=== PATIENT | male | born 1995 | race Two or more races ===

== ENCOUNTER 2016-07-05 16:41 | Emergency (ER) | payer OTHER ==
[2016-07-05 16:47] VITALS: BP 120/63; PULSE 72; RESP 16; TEMP 97.5; O2SAT 97
--- NOTE | 2016-07-05 17:05 | EDPHY ---
General Narrative: CHIEF COMPLAINT: Left finger pain HISTORY OF PRESENT ILLNESS: 3 weeks ago injured his left middle finger playing football. Says he caught the ball awkwardly, jamming his left middle finger. Since then he has had some pain at DIP joint of the left middle finger. It is mild at rest. [id number] with flexion or movement of the finger. He has no numbness or tingling. No weakness. No lacerations or abrasions. No fever chills. No difficulty using the finger. He has not yet been evaluated by anyone. No bleeding disorders. No other associated complaints or modifying factors. PRIOR ORTHO INJURIES: None ESTABLISHED ORTHOPEDIST: None REVIEW OF SYSTEMS: Ten systems reviewed and are negative unless otherwise noted in the HPI EXAMINATION General Appearance: Alert, no distress Cardiovascular: Pulses normal throughout. Symmetric radial pulses are 2+. Brisk cap refill in all fingers Neurological: A&O, sensory symmetric, strength symmetric. Two point sensation intact. Skin: Warm and dry, no rash. Mild erythema over the left middle finger DIP joint. No lacerations or abrasions Extremities: Mild tenderness to palpation of the left middle finger distally. Range of motion is fully intact including superficial and profundus flexion. Extension is intact. Sensory intact. Brisk cap refill. Psychiatric: Mood and affect normal DIFFERENTIAL DIAGNOSES: Including but not limited to sprain, strain, fracture, fracture dislocation, dislocation MDM: 5:00 p.m. Likely jam/sprain to the left middle finger DIP joint. This happened 3 weeks ago. He is neuro intact. There is no laceration or abrasion. No signs of infection. Range of motion is intact. Suspected this is a sprain but we will obtain x-ray as he has not yet been evaluated by anyone prior to today. 5:30 p.m. Displaced fracture of the dorsal aspect of left middle finger distal phalanx. This is subacute, 3 weeks in duration. He is neurovascular intact. I will place him in a finger cage splint. Discharged home, neurovascular intact with instructions follow up with hand surgeon for definitive care. He is comfortable this plan and discharged home in stable condition. ED Precautions: Worsening pain. Erythema, edema, cyanosis, pallor, paresthesia or anesthesia. SUPERVISION: This patient was independently evaluated without direct examination by the attending physician. Case was discussed with attending physician. - Diagnostics Imaging Results: Imaging Impressions Finger X-Ray 04/10/17 16:47 Impression: Displaced avulsion fracture at the dorsal base of the third finger distal phalanx. - History Smoking Status: Never smoked - Objective Vital Signs: Initial Vital Signs Temperature (C) 97.5 F 07/05/16 16:43 Heart Rate 72 07/05/16 16:43 Respiratory Rate 16 07/05/16 16:43 Blood Pressure 120/63 07/05/16 16:43 O2 Sat (%) 97 07/05/16 16:43 O2 Delivery Mode Room Air Allergies/Adverse Reactions: No Known Allergies Allergy (Verified 07/05/16 16:46) Home Medications: Medication Instructions Recorded NK [No Known Home Meds] 01/01/15 Departure - Departure Disposition: Home, Routine, Self-Care Clinical Impression: Sprain of interphalangeal joint of left middle finger, initial encounter Qualifiers: Encounter type: initial encounter Qualified Code(s): S63.633A - Sprain of interphalangeal joint of left middle finger, initial encounter Fracture of distal phalanx of left middle finger Qualifiers: Encounter type: initial encounter Fracture type: closed Fracture alignment: displaced Qualified Code(s): S62.633A - Displaced fracture of distal phalanx of left middle finger, initial encounter for closed fracture Condition: Good Instructions: Finger Sprain (ED) Additional Instructions: Weightbearing as tolerated. Follow up with hand surgeon for definitive care. Referrals: Georgie Kirby MD [Medical Doctor] - As per Instructions Stand Alone Forms: School Excuse
== END 2016-07-05 17:47 | disposition home or self-care (01) ==
DX: S62.633A Displaced fracture of distal phalanx of left middle finger, initial encounter for closed fracture (principal); S63.633A Sprain of interphalangeal joint of left middle finger, initial encounter; W23.1XXA Caught, crushed, jammed, or pinched between stationary objects, initial encounter; Y92.321 Football field as the place of occurrence of the external cause; Y93.61 Activity, american tackle football